=== PATIENT | female | born 2000 | race Caucasian/White ===

== ENCOUNTER 2021-04-04 19:50 | Emergency (ER) | payer SELFPAY ==
[~2021-04-04] VITALS: Ht 165.1 cm; Wt 64.0 kg
[2021-04-04 20:17] VITALS: BP 130/85
--- NOTE | 2021-04-04 20:20 | NUR ---
TO LOBBY A/W BED AMBULATORY
[2021-04-04] MEDS ORDERED: ACETAMINOPHEN 325 MG TAB PO ONE (20:30)
--- NOTE | 2021-04-04 21:32 | NUR ---
PT TAKEN TO BED 4
[2021-04-04] MEDS ORDERED: NACL 0.9% 1,000 ML IV ONE ×2 (21:35→22:35)
--- NOTE | 2021-04-04 21:36 | NUR ---
Said examining patient.
[2021-04-04 21:59] LABS: APPEARANCE,URINE CLOUDY (CLEAR); BILIRUBIN,URINE NEGATIVE (NEGATIVE); BLOOD, URINE 3+ (NEGATIVE); COLOR,URINE DARK YELLOW (YELLOW); LEUKOCYTE ESTERASE ,URINE 2+ (NEGATIVE); NITRITE, URINE POSITIVE (NEGATIVE); UGLUCOSE TRACE (NEGATIVE)
[2021-04-04 22:01] LABS: BASOPHILS % (AUTO) 0.1 % (0.0-2.0); EOSINOPHILS % (AUTO) 0.1 % (0.0-4.0); HEMATOCRIT 37.5 % (36-48); HEMOGLOBIN 12.6 g/dL (12.0-16.0); LYMPHOCYTES # (AUTO) 0.7 K/uL (2.5-16.5); LYMPHOCYTES % (AUTO) 6.4 % (20.5-51.1); MEAN CORPUSCULAR HEMOGLOBIN 27 pg (27-31); MEAN CORPUSCULAR HGB CONC 34 g/dL (33-37); MEAN CORPUSCULAR VOLUME 80.1 fL (80-94); MONOCYTES # (AUTO) 1.1 K/uL (0.8-1.0); MONOCYTES % (AUTO) 9.4 % (1.7-9.3); NEUTROPHILS # (AUTO) 9.6 K/uL (1.8-7.7); PLATELET COUNT (AUTO) 222 K/uL (140-450); RED BLOOD CELL COUNT(AUTO) 4.68 MIL/uL (4.20-5.40); RED CELL DISTRIBUTION WIDTH 13.5 % (11.6-13.7); WHITE BLOOD COUNT (AUTO) 11.4 K/uL (4.8-10.8)
[2021-04-04 22:21] LABS: ALBUMIN 3.4 g/dL (3.4-5.0); ANION GAP 12.7 (8-16); CARBON DIOXIDE 24.9 mmol/L (21-32); CREATININE 0.8 mg/dL (0.6-1.3); POTASSIUM 3.6 mmol/L (3.5-5.1); TOTAL BILIRUBIN 0.5 mg/dL (0.0-1.0)
[2021-04-04 22:24] LABS: WBC,URINE TOO MANY TO COUNT /HPF (0-5)
[2021-04-04] MEDS ORDERED: CEPH-588 PO (23:00)
[2021-04-04] MEDS ORDERED: ACET-2619 PO (23:00)
[2021-04-04] MEDS ORDERED: cefTRIAXone 1,000 MG VIAL ONE (23:30)
--- NOTE | 2021-04-04 23:33 | NUR ---
21 YO F BIB SELF WITH C/C OF 10/10 FLANK PAIN X3DAYS. PT STATES SHE HAS HAD BURNING URINATION, INCREASED FREQUENCY AND URGENCY 5DAYS. PT STATES SHE HAS HISTORY OF UTI. DENIES HX, RX AND ALLERGIES
[2021-04-05] MEDS ORDERED: KETOROLAC 30 MG/ML VIAL ONE (00:22)
[2021-04-05] MEDS ORDERED: KETOROLAC 30 MG/ML VIAL IVP ONE (00:25)
[2021-04-05 00:36] VITALS: BP 118/67
--- NOTE | 2021-04-05 00:36 | NUR ---
Patient discharged with v/s stable. Written and verbal after care instructions given and explained. Patient alert, oriented and verbalized understanding of instructions. Ambulatory with steady gait. All questions addressed prior to discharge. ID band removed. Patient advised to follow up with PMD. Rx of KEFLEX AND TYLEMNOL given. Patient educated on indication of medication including possible reaction and side effects. Opportunity to ask questions provided and answered.
== END 2021-04-05 00:36 | disposition home or self-care (01) ==
LOC: MED 19:50
DX: A41.89 Other specified sepsis (principal); N12 Tubulo-interstitial nephritis, not specified as acute or chronic; D72.829 Elevated white blood cell count, unspecified
CPT/HCPCS: 36415; 80053; 81001; 81025; 83605; 85025; 87040; 87086; 96361; 96365; 96375; 99291; J0696; J1885; J7030